=== PATIENT | female | born 1965 | race Caucasian/White ===

== ENCOUNTER 2019-11-12 14:24 | Emergency (ER) | payer MEDICAID, SELFPAY ==
[2019-11-12] VITALS (11 sets, daily range): BP systolic 113–142; BP diastolic 54–76; PULSE 72–91; RESP 18–22; TEMP 37.2; O2SAT 87–94; BMI 33.3
--- NOTE | 2019-11-12 14:32 | ECG_ITS ---
[facility] Test Date: 2019-11-12 Pat Name: Kaila Greenberg Department: Room: Gender: Female Capacity Planning Manager: : 1965 Requested By: Anna Carmen Order Number: [id number] Calderon MD: Sania Leija M.D. Measurements Intervals Roland Rate: 79 P: 55 ME: 162 QRS: -5 QRSD: 157 T: 58 QT: 402 QTc: 462 Interpretive Statements SINUS RHYTHM LEFT BUNDLE BRANCH BLOCK [120+ ms QRS DURATION, 80+ ms Q/S IN V1/V2, 85+ ms R IN I/aVL/V5/V6] No previous ECG available for comparison Electronically Signed On 11-12-2019 20:39:06 CDT by Sania Leija M.D. [id number]
--- NOTE | 2019-11-12 14:32 | XR_ITS ---
WS: [id number] Portable AP upright chest, 11/12/2019 Clinical Data: cp Comparison: None. Findings: No nodules, masses or effusions are seen. The heart is normal. The pulmonary vascularity is not increased. No pneumonia or pneumothorax is seen. XR/XR chest 1V portable [id number] Impression: Negative chest.
[2019-11-12] MEDS: albuterol 8 gm MDI 2 PUFF INHALATION (15:01)
[2019-11-12 15:19] LABS: ABG PCO2 45.5 mmHg (35-45); ABG PH Result 7.46 (7.35-7.45); Arterial Blood Gas Hematocrit 36.1 % (37-47); Base Excess ABG 7.3 mmol/L (-2.0-2.0); Blood Gas Allen Test Pos; Blood Gas Sample Type Arterial; Carboxyhemoglobin 1.8 %THgb (0.4-20.1); HCO3 ABG 32.1 mmol/L (22-26); HGB O2 Sat 89.5 % (95-100); Ionized Calcium Level - ABG 1.1 mmol/L (1.1-1.4); Methemoglobin 0.8 % (0.4-1.5); Oxygen Saturation ABG 91.8; PO2 ABG 59.3 mmHg (80.0-100.0); Potassium Level - ABG 3.1 mmol/L (3.5-5.0); Total Hemoglobin 11.8 g/dL (12-16)
[2019-11-12 15:20] LABS: Alveolar-Arterial Oxygen Gradi 14.9 mmHg (5-10); Blood Gas Operator Identificat ED; Blood Gas Sample Site Radial, right; Oxygen Device NC
--- NOTE | 2019-11-12 15:34 | ED_ITS ---
Documented by User: Sheridan Camacho 11/12/19 15:43 HPI - SOB/Dyspnea General: Chief Complaint: Shortness of Breath/Dyspnea Stated Complaint: cough worsening/chest pain Time Seen by Provider: 11/12/19 14:40 Source: patient Mode of arrival: ambulatory Limitations: no limitations History of Present Illness: MD elicited complaint: shortness of breath, cough, pain with inspiration and chest pain Pertinent past history: COPD Onset (ago): day(s) (3) Timing: progressively worsening Severity: moderate Exacerbating factors: exertion and coughing Relieving factors: nothing Known history of: COPD Associated symptoms: Reports chest congestion, chest pain, cough, extremity pain (generalized malaise) and fever(s); Deny abdominal pain, diaphoresis, dizziness, lightheadedness, nausea, syncope or vomiting Treatment prior to arrival: none Related Data: Home oxygen amount: none Review of Systems General: Reports: 10 or more systems reviewed and unremarkable except in HPI and below Const: Reports: fever(s), chills, body aches, fatigue and malaise; Denies: change in appetite, change in weight or diaphoresis Eyes: Denies: change in vision or blurry vision ENMT: Denies: throat pain, odynophagia or dental pain Card: Reports: chest pain; Denies: lightheadedness or syncope Resp: Reports: dyspnea, non-productive cough, wheezing, pain on inspiration and chest congestion GI: Reports: diarrhea; Denies: abdominal pain, nausea or vomiting : Denies: flank pain, difficulty voiding, dysuria or urinary frequency Musc: Reports: extremity pain (generalized malaise); Denies: neck pain or back pain Neuro: Denies: headache(s), numbness in extremities, weakness in extremities, sensory changes, lack of coordination, difficulty walking, dizziness, vertigo, confusion, behavioral changes or Slurred speech present Psych: Denies: suicidal ideation or homicidal ideation Physical Exam Const: COMMON NORMALS: no acute distress, average body habitus, patient oriented x3, no limitations, healthy appearing, alert and well nourished HENMT: COMMON NORMALS: normocephalic, atraumatic, hearing grossly normal bilaterally, external ears normal, EAC's normal, TM's normal bilaterally, Normal external nose present, Normal nasal mucous membranes and turbinates present, moist oral mucous membranes, oropharynx normal, dentition normal and gingiva normal HEAD & SCALP: normocephalic and atraumatic NOSE: Normal external nose present and Normal nasal mucous membranes and turbinates present EXTERNAL EAR: Yes external ears normal EXTERNAL AUDITORY CANAL: EAC's normal TYMPANIC MEMBRANE: TM's normal bilaterally Eye: COMMON NORMALS: Equal, round and reactive pupils present, EOMs intact bilaterally, conjunctivae normal, no scleral icterus, no papilledema, normal visual parker by confrontation and fundi normal bilaterally CONJUNCTIVA: Yes conjunctivae normal PUPIL: Yes Equal, round and reactive pupils present DIRECT OPHTHALMOSCOPY: Yes no papilledema and Yes fundi normal bilaterally Neck/C-Spine: COMMON NORMALS: full ROM, no lymphadenopathy, supple, no meningeal signs, no JVD, Thyroid normal and No carotid bruits THYROID: Thyroid normal Lymph: LYMPHATIC: no lymphadenopathy noted Chest: COMMONS NORMALS: normal inspection of the chest, normal palpation of entire chest wall, normal inspection of the breasts and normal palpation of the breasts Resp: COMMON NORMALS: No retractions and No use of accessory muscles; negative for normal respiratory effort EFFORT & INSPECTION: Yes tachypneic and Yes Actively coughing AUSCULTATION: wheezes Cardio: COMMON NORMALS: no JVD, regular rate, regular rhythm, No gallops present (Cardio), No clicks present (Cardio), No murmurs present (Cardio) and No rub (Cardio) RATE: regular rate RHYTHM: regular rhythm GI: COMMON NORMALS: Normal to inspection, nondistended, normoactive bowel sounds present, Soft to palpation, non-tender, No hepatosplenomegaly present, no masses and no bruits PALPATION: Yes Soft to palpation and Yes No hepatosplenomegaly present : COMMON NORMALS: Yes no CVA tenderness BLADDER/KIDNEY EXAM: Yes no CVA tenderness Back/Pelvis: COMMON NORMALS: no CVA tenderness, thoracic and lumbar spine normal to inspection, no thoracic nor lumbar tenderness, thoraco-lumbar ROM normal and straight leg raise negative bilaterally Extremity: COMMON NORMALS: normal to inspection, full ROM, capillary refill normal, no joint enlargement, no clubbing, cyanosis or edema, no calf tenderness and no pedal edema Neuro: COMMON NORMALS: patient oriented x3, CN's II-XII intact bilaterally, moves all extremities, no focal motor deficits, no sensory deficits noted, deep tendon reflexes 2+ bilaterally and gait normal SENSORIUM/ORIENTATION: Yes alert MENINGEAL SIGNS: Yes no meningeal signs Psych: COMMON NORMALS: mental status grossly normal, Normal thought process present, cooperative, normal affect, speech normal, activity/motor behavior normal, denies hallucinations, denies homicidal ideation and denies suicidal ideation SPEECH: Yes normal speech THOUGHT PROCESS: Normal thought process present Skin: COMMON NORMALS: no rashes or lesions noted, no wounds, turgor normal, no jaundice, no petechiae and no mottling GENERAL SKIN EXAM: no rashes or lesions noted and turgor normal Course ED course: . Vital Signs: Vital signs: Vital Signs Temperature 99 F 11/12/19 14:34 Pulse Rate 89 11/12/19 22:16 Respiratory Rate 19 H 11/12/19 20:36 Blood Pressure 142/54 11/12/19 22:16 Pulse Oximetry 92 11/12/19 22:16 MDM - SOB/Dyspnea Lab Data: Labs: Lab Results 11/12/19 11/12/19 11/12/19 Range/Units 15:11 15:40 15:40 WBC 11.4 H (4.0-10.0) 10^3/ uL RBC 3.79 L (4.1-5.3) 10^6/u L Hgb 11.9 (11.5-15.3) g/dL Hct 37.3 (37.0-47.0) % MCV 98.4 (81-99) fL MCH 31.4 (28.0-34.0) pg MCHC 31.9 (30.0-36.0) g/dL RDW 13.3 (12.1-15.1) % Plt Count 310 (130-400) 10^3/c mm MPV 11.1 H (7.4-10.4) fL Neut % (Auto) 72.9 % Lymph % (Auto) 16.7 % Mcdonough % (Auto) 8.1 % Eos % (Auto) 1.5 % Baso % (Auto) 0.4 % Neut # (Auto) 8.28 H (1.8-7.7) 10^3/u L Lymph # (Auto) 1.9 (0.8-4.8) 10^3/u L Mcdonough # (Auto) 0.9 (0.2-0.9) 10^3/u L Eos # (Auto) 0.2 (0.0-0.8) 10^3/u L Baso # (Auto) 0.1 (0.0-0.1) 10^3/u L Nucleated RBC % (a uto) 0 % Nucleated RBCs # 0.0 /100WBC D-Dimer 2.28 H (0-0.59) ug/mIFE U Specimen Type Arterial Sample Site Radial, right ABG pH 7.46 H (7.35-7.45) ABG pCO2 45.5 H (35-45) mmHg ABG pO2 59.3 L (80.0-100.0) mmH g ABG HCO3 32.1 H (22-26) mmol/L ABG O2 Saturation 91.8 ABG Base Excess 7.3 H (-2.0-2.0) mmol/ L Dalton Test Pos A-a O2 Gradient 14.9 H (5-10) mmHg Hematocrit 36.1 L (37-47) % Hgb O2 Saturation 89.5 L (95-100) % Carboxyhemoglobin 1.8 (0.4-20.1) %THgb Methemoglobin 0.8 (0.4-1.5) % Total Hemoglobin 11.8 L (12-16) g/dL Sodium 141.0 (131-143) mmol/L Potassium 3.1 L (3.5-5.0) mmol/L Glucose 124.0 H (70-115) mg/dL Ionized Calcium 1.1 (1.1-1.4) mmol/L O2 Delivery Device Nc O2 Liters/Min 3.0 % FiO2 32.0 % Sow [employer] Manager ID Ed Chloride (98-107) mmol/L Carbon Dioxide (22-29) mmol/L Anion Gap (5-19) BUN (6-20) mg/dL Creatinine (0.5-0.9) mg/dL GFR Calculation (90-130) mL/min Calculated Osmolal ity (285-295) mOsm/k g Lactate (0.5-2.2) mmol/L Calcium (8.5-10.5) mg/dL Total Bilirubin (0.15-1.2) mg/dL AST (0-32) U/L ALT (0-33) U/L Alkaline Phosphata se (35-105) IU/L Troponin T Gen 5 n g/L (0-10) ng/L Total Protein (6.6-8.7) g/dL Albumin (3.5-5.2) g/dL Globulin (1.3-4.6) g/dL SARS-CoV-2 Ag (Rap id) (Negative) 11/12/19 11/12/19 11/12/19 Range/Units 15:40 15:40 15:40 WBC (4.0-10.0) 10^3/ uL RBC (4.1-5.3) 10^6/u L Hgb (11.5-15.3) g/dL Hct (37.0-47.0) % MCV (81-99) fL MCH (28.0-34.0) pg MCHC (30.0-36.0) g/dL RDW (12.1-15.1) % Plt Count (130-400) 10^3/c mm MPV (7.4-10.4) fL Neut % (Auto) % Lymph % (Auto) % Mcdonough % (Auto) % Eos % (Auto) % Baso % (Auto) % Neut # (Auto) (1.8-7.7) 10^3/u L Lymph # (Auto) (0.8-4.8) 10^3/u L Mcdonough # (Auto) (0.2-0.9) 10^3/u L Eos # (Auto) (0.0-0.8) 10^3/u L Baso # (Auto) (0.0-0.1) 10^3/u L Nucleated RBC % (a uto) % Nucleated RBCs # /100WBC D-Dimer (0-0.59) ug/mIFE U Specimen Type Sample Site ABG pH (7.35-7.45) ABG pCO2 (35-45) mmHg ABG pO2 (80.0-100.0) mmH g ABG HCO3 (22-26) mmol/L ABG O2 Saturation ABG Base Excess (-2.0-2.0) mmol/ L Dalton Test A-a O2 Gradient (5-10) mmHg Hematocrit (37-47) % Hgb O2 Saturation (95-100) % Carboxyhemoglobin (0.4-20.1) %THgb Methemoglobin (0.4-1.5) % Total Hemoglobin (12-16) g/dL Sodium 136 (131-143) mmol/L Potassium 3.1 L (3.5-5.0) mmol/L Glucose 127 H (70-115) mg/dL Ionized Calcium (1.1-1.4) mmol/L O2 Delivery Device O2 Liters/Min % FiO2 % [employer] Manager ID Chloride 94 L (98-107) mmol/L Carbon Dioxide 31 H (22-29) mmol/L Anion Gap 14.1 (5-19) BUN 4 L (6-20) mg/dL Creatinine 0.5 (0.5-0.9) mg/dL GFR Calculation 128.1 (90-130) mL/min Calculated Osmolal ity 280 L (285-295) mOsm/k g Lactate 0.9 (0.5-2.2) mmol/L Calcium 9.5 (8.5-10.5) mg/dL Total Bilirubin 0.6 (0.15-1.2) mg/dL AST 15 (0-32) U/L ALT 38 H (0-33) U/L Alkaline Phosphata se 100 (35-105) IU/L Troponin T Gen 5 n g/L 26 H (0-10) ng/L Total Protein 7.5 (6.6-8.7) g/dL Albumin 4.1 (3.5-5.2) g/dL Globulin 3.4 (1.3-4.6) g/dL SARS-CoV-2 Ag (Rap id) (Negative) 11/12/19 Range/Units 15:45 WBC (4.0-10.0) 10^3/ uL RBC (4.1-5.3) 10^6/u L Hgb (11.5-15.3) g/dL Hct (37.0-47.0) % MCV (81-99) fL MCH (28.0-34.0) pg MCHC (30.0-36.0) g/dL RDW (12.1-15.1) % Plt Count (130-400) 10^3/c mm MPV (7.4-10.4) fL Neut % (Auto) % Lymph % (Auto) % Mcdonough % (Auto) % Eos % (Auto) % Baso % (Auto) % Neut # (Auto) (1.8-7.7) 10^3/u L Lymph # (Auto) (0.8-4.8) 10^3/u L Mcdonough # (Auto) (0.2-0.9) 10^3/u L Eos # (Auto) (0.0-0.8) 10^3/u L Baso # (Auto) (0.0-0.1) 10^3/u L Nucleated RBC % (a uto) % Nucleated RBCs # /100WBC D-Dimer (0-0.59) ug/mIFE U Specimen Type Sample Site ABG pH (7.35-7.45) ABG pCO2 (35-45) mmHg ABG pO2 (80.0-100.0) mmH g ABG HCO3 (22-26) mmol/L ABG O2 Saturation ABG Base Excess (-2.0-2.0) mmol/ L Dalton Test A-a O2 Gradient (5-10) mmHg Hematocrit (37-47) % Hgb O2 Saturation (95-100) % Carboxyhemoglobin (0.4-20.1) %THgb Methemoglobin (0.4-1.5) % Total Hemoglobin (12-16) g/dL Sodium (131-143) mmol/L Potassium (3.5-5.0) mmol/L Glucose (70-115) mg/dL Ionized Calcium (1.1-1.4) mmol/L O2 Delivery Device O2 Liters/Min % FiO2 % Sow [employer] Manager ID Chloride (98-107) mmol/L Carbon Dioxide (22-29) mmol/L Anion Gap (5-19) BUN (6-20) mg/dL Creatinine (0.5-0.9) mg/dL GFR Calculation (90-130) mL/min Calculated Osmolal ity (285-295) mOsm/k g Lactate (0.5-2.2) mmol/L Calcium (8.5-10.5) mg/dL Total Bilirubin (0.15-1.2) mg/dL AST (0-32) U/L ALT (0-33) U/L Alkaline Phosphata se (35-105) IU/L Troponin T Gen 5 n g/L (0-10) ng/L Total Protein (6.6-8.7) g/dL Albumin (3.5-5.2) g/dL Globulin (1.3-4.6) g/dL SARS-CoV-2 Ag (Rap id) Negative (Negative) Discharge Plan Discharge Patient Disposition: Home Clinical Impression: Acute exacerbation of chronic obstructive airways disease Condition: Stable Prescriptions: New azithromycin 250 mg tablet 250 mg PO DAILY 4 Days Qty: 4 RF: 0 prednisone 20 mg tablet 20 mg PO TID 5 Days Qty: 15 RF: 0 Tessalon Perles 100 mg capsule 100 mg PO BID PRN (Reason: cough) Qty: 20 RF: 0 albuterol sulfate 1.25 mg/3 mL solution for nebulization 1.25 mg INHALATION Q8H PRN (Reason: shortness of breath or wheezing) Qty: 75 RF: 0 No Action albuterol sulfate 2.5 mg /3 mL (0.083 %) solution for nebulization See Rx Instructions .ROUTE .COMPLEX RF: 0 sertraline 100 mg tablet 100 mg PO BID RF: 0 meloxicam 7.5 mg tablet 7.5 mg PO DAILY RF: 0 trazodone 100 mg tablet 100 mg PO BID RF: 0 buspirone 30 mg tablet 30 mg PO BID RF: 0 ProAir HFA 90 mcg/actuation HFA aerosol inhaler See Rx Instructions .ROUTE .COMPLEX RF: 0 Spiriva with HandiHaler 18 mcg capsule, w/inhalation device See Rx Instructions .ROUTE .COMPLEX RF: 0 Chantix Starting Month Box 0.5 mg (11)- 1 mg (42) tablets,dose pack See Rx Instructions .ROUTE .COMPLEX RF: 0 Discharge Orders: Discharge Order (Routine); Ordered 11/12/19 Ordered By: Nagi Pastor Discharge Diet: Regular Discharge Activity: Increase activity as tolerated Patient Instructions: Bronchitis (Acute) - Adult, Using Oxygen at Home (ED), Chronic Obstructive Pulmonary Disease (ED) Activity Restrictions/Additional Instructions: Follow-up with medical provider as directed. Take medications as prescribed. Return to the ER or your medical provider if condition worsens. Please read and understand discharge instructions. If any questions, please ask. Discharge Date/Time: 11/12/19 23:24 Sign Out Sign Out Data: Patient Sign Out occurred on 11/12/19 at 17:18. Patient's care was discussed, and care was transferred from to HUBERT Chaudhary. Coding Level of Care Code ED Mems Engineer for Chg Fwd Exam Comprehensive Documented by User: HUBERT Chaudhary 11/13/19 01:52 HPI - SOB/Dyspnea General: Chief Complaint: Shortness of Breath/Dyspnea Stated Complaint: cough worsening/chest pain Time Seen by Provider: 11/12/19 14:40 Course Reevaluation(s): Reevaluation #1: I wanted to talk to patient about CTA chest pain negative for PE. I also talked patient about her history and she says she does have some inhalers and has a history of COPD. She is not on any oxygen at home. When her O2 nasal cannula was removed in the room her oxygen saturation dipped down into the low 80s. I am ordering an home O2 evaluation for patient. Time: 18:38 Consultations: Consultation #1: I spoke with respiratory therapist after home O2 eval and she stated that patient needs to be on 2 L of oxygen at home when at rest and approximately 5 L of oxygen on exertion via nasal cannula. Time: 20:37 Vital Signs: Vital signs: Vital Signs Temperature 99 F 11/12/19 14:34 Pulse Rate 89 11/12/19 22:16 Respiratory Rate 19 H 11/12/19 20:36 Blood Pressure 142/54 11/12/19 22:16 Pulse Oximetry 92 11/12/19 22:16 MDM - SOB/Dyspnea MDM Narrative: Medical decision making narrative: Sheridan Stewart performed the history, physical exam and work-up of patient. I took over patient care around 5 PM and Sheridan told me that patient's d-dimer was elevated at 2.[address] of the chest was ordered. COVID antigen test was negative. Sheridan told me that pending CTA chest results patient can be discharged. Patient is a 54-year-old female comes to the ED with shortness of breath. Patient has a past medical history of COPD. Patient is not on any oxygen at home. White blood cell 11.4, hemoglobin 11.9. Potassium 3.1 and rest of CMP was unremarkable. CTA of chest showed no PE but did show some mild bronchitis. Patient was given DuoNeb breathing treatment and put on 3 L of O2 nasal cannula and her symptoms improved. Patient was also given 40 mEq of oral potassium while here in the ED. RT performed home O2 eval and she stated that patient needs to be on 2 L of oxygen at home when at rest and approximately 5 L of oxygen on exertion via nasal cannula. Patient was given a prescription for oxygen. She was also sent home with prescription for azithromycin, Tessalon Perles, prednisone and refill for albuterol nebs. Follow-up with PCP in 7 to 10 days. Return to ED precautions given. Patient ended up leaving ED AMA without oxygen. Lab Data: Attestation: I reviewed the patient's lab results. Labs: Lab Results 11/12/19 11/12/19 11/12/19 Range/Units 15:11 15:40 15:40 WBC 11.4 H (4.0-10.0) 10^3/ uL RBC 3.79 L (4.1-5.3) 10^6/u L Hgb 11.9 (11.5-15.3) g/dL Hct 37.3 (37.0-47.0) % MCV 98.4 (81-99) fL MCH 31.4 (28.0-34.0) pg MCHC 31.9 (30.0-36.0) g/dL RDW 13.3 (12.1-15.1) % Plt Count 310 (130-400) 10^3/c mm MPV 11.1 H (7.4-10.4) fL Neut % (Auto) 72.9 % Lymph % (Auto) 16.7 % Mcdonough % (Auto) 8.1 % Eos % (Auto) 1.5 % Baso % (Auto) 0.4 % Neut # (Auto) 8.28 H (1.8-7.7) 10^3/u L Lymph # (Auto) 1.9 (0.8-4.8) 10^3/u L Mcdonough # (Auto) 0.9 (0.2-0.9) 10^3/u L Eos # (Auto) 0.2 (0.0-0.8) 10^3/u L Baso # (Auto) 0.1 (0.0-0.1) 10^3/u L Nucleated RBC % (a uto) 0 % Nucleated RBCs # 0.0 /100WBC D-Dimer 2.28 H (0-0.59) ug/mIFE U Specimen Type Arterial Sample Site Radial, right ABG pH 7.46 H (7.35-7.45) ABG pCO2 45.5 H (35-45) mmHg ABG pO2 59.3 L (80.0-100.0) mmH g ABG HCO3 32.1 H (22-26) mmol/L ABG O2 Saturation 91.8 ABG Base Excess 7.3 H (-2.0-2.0) mmol/ L Dalton Test Pos A-a O2 Gradient 14.9 H (5-10) mmHg Hematocrit 36.1 L (37-47) % Hgb O2 Saturation 89.5 L (95-100) % Carboxyhemoglobin 1.8 (0.4-20.1) %THgb Methemoglobin 0.8 (0.4-1.5) % Total Hemoglobin 11.8 L (12-16) g/dL Sodium 141.0 (131-143) mmol/L Potassium 3.1 L (3.5-5.0) mmol/L Glucose 124.0 H (70-115) mg/dL Ionized Calcium 1.1 (1.1-1.4) mmol/L O2 Delivery Device Nc O2 Liters/Min 3.0 % FiO2 32.0 % Sow [employer] Manager ID Ed Chloride (98-107) mmol/L Carbon Dioxide (22-29) mmol/L Anion Gap (5-19) BUN (6-20) mg/dL Creatinine (0.5-0.9) mg/dL GFR Calculation (90-130) mL/min Calculated Osmolal ity (285-295) mOsm/k g Lactate (0.5-2.2) mmol/L Calcium (8.5-10.5) mg/dL Total Bilirubin (0.15-1.2) mg/dL AST (0-32) U/L ALT (0-33) U/L Alkaline Phosphata se (35-105) IU/L Troponin T Gen 5 n g/L (0-10) ng/L Total Protein (6.6-8.7) g/dL Albumin (3.5-5.2) g/dL Globulin (1.3-4.6) g/dL SARS-CoV-2 Ag (Rap id) (Negative) 11/12/19 11/12/19 11/12/19 Range/Units 15:40 15:40 15:40 WBC (4.0-10.0) 10^3/ uL RBC (4.1-5.3) 10^6/u L Hgb (11.5-15.3) g/dL Hct (37.0-47.0) % MCV (81-99) fL MCH (28.0-34.0) pg MCHC (30.0-36.0) g/dL RDW (12.1-15.1) % Plt Count (130-400) 10^3/c mm MPV (7.4-10.4) fL Neut % (Auto) % Lymph % (Auto) % Mcdonough % (Auto) % Eos % (Auto) % Baso % (Auto) % Neut # (Auto) (1.8-7.7) 10^3/u L Lymph # (Auto) (0.8-4.8) 10^3/u L Mcdonough # (Auto) (0.2-0.9) 10^3/u L Eos # (Auto) (0.0-0.8) 10^3/u L Baso # (Auto) (0.0-0.1) 10^3/u L Nucleated RBC % (a uto) % Nucleated RBCs # /100WBC D-Dimer (0-0.59) ug/mIFE U Specimen Type Sample Site ABG pH (7.35-7.45) ABG pCO2 (35-45) mmHg ABG pO2 (80.0-100.0) mmH g ABG HCO3 (22-26) mmol/L ABG O2 Saturation ABG Base Excess (-2.0-2.0) mmol/ L Dalton Test A-a O2 Gradient (5-10) mmHg Hematocrit (37-47) % Hgb O2 Saturation (95-100) % Carboxyhemoglobin (0.4-20.1) %THgb Methemoglobin (0.4-1.5) % Total Hemoglobin (12-16) g/dL Sodium 136 (131-143) mmol/L Potassium 3.1 L (3.5-5.0) mmol/L Glucose 127 H (70-115) mg/dL Ionized Calcium (1.1-1.4) mmol/L O2 Delivery Device O2 Liters/Min % FiO2 % Sow [employer] Manager ID Chloride 94 L (98-107) mmol/L Carbon Dioxide 31 H (22-29) mmol/L Anion Gap 14.1 (5-19) BUN 4 L (6-20) mg/dL Creatinine 0.5 (0.5-0.9) mg/dL GFR Calculation 128.1 (90-130) mL/min Calculated Osmolal ity 280 L (285-295) mOsm/k g Lactate 0.9 (0.5-2.2) mmol/L Calcium 9.5 (8.5-10.5) mg/dL Total Bilirubin 0.6 (0.15-1.2) mg/dL AST 15 (0-32) U/L ALT 38 H (0-33) U/L Alkaline Phosphata se 100 (35-105) IU/L Troponin T Gen 5 n g/L 26 H (0-10) ng/L Total Protein 7.5 (6.6-8.7) g/dL Albumin 4.1 (3.5-5.2) g/dL Globulin 3.4 (1.3-4.6) g/dL SARS-CoV-2 Ag (Rap id) (Negative) 11/12/19 Range/Units 15:45 WBC (4.0-10.0) 10^3/ uL RBC (4.1-5.3) 10^6/u L Hgb (11.5-15.3) g/dL Hct (37.0-47.0) % MCV (81-99) fL MCH (28.0-34.0) pg MCHC (30.0-36.0) g/dL RDW (12.1-15.1) % Plt Count (130-400) 10^3/c mm MPV (7.4-10.4) fL Neut % (Auto) % Lymph % (Auto) % Mcdonough % (Auto) % Eos % (Auto) % Baso % (Auto) % Neut # (Auto) (1.8-7.7) 10^3/u L Lymph # (Auto) (0.8-4.8) 10^3/u L Mcdonough # (Auto) (0.2-0.9) 10^3/u L Eos # (Auto) (0.0-0.8) 10^3/u L Baso # (Auto) (0.0-0.1) 10^3/u L Nucleated RBC % (a uto) % Nucleated RBCs # /100WBC D-Dimer (0-0.59) ug/mIFE U Specimen Type Sample Site ABG pH (7.35-7.45) ABG pCO2 (35-45) mmHg ABG pO2 (80.0-100.0) mmH g ABG HCO3 (22-26) mmol/L ABG O2 Saturation ABG Base Excess (-2.0-2.0) mmol/ L Dalton Test A-a O2 Gradient (5-10) mmHg Hematocrit (37-47) % Hgb O2 Saturation (95-100) % Carboxyhemoglobin (0.4-20.1) %THgb Methemoglobin (0.4-1.5) % Total Hemoglobin (12-16) g/dL Sodium (131-143) mmol/L Potassium (3.5-5.0) mmol/L Glucose (70-115) mg/dL Ionized Calcium (1.1-1.4) mmol/L O2 Delivery Device O2 Liters/Min % FiO2 % Sow [employer] Manager ID Chloride (98-107) mmol/L Carbon Dioxide (22-29) mmol/L Anion Gap (5-19) BUN (6-20) mg/dL Creatinine (0.5-0.9) mg/dL GFR Calculation (90-130) mL/min Calculated Osmolal ity (285-295) mOsm/k g Lactate (0.5-2.2) mmol/L Calcium (8.5-10.5) mg/dL Total Bilirubin (0.15-1.2) mg/dL AST (0-32) U/L ALT (0-33) U/L Alkaline Phosphata se (35-105) IU/L Troponin T Gen 5 n g/L (0-10) ng/L Total Protein (6.6-8.7) g/dL Albumin (3.5-5.2) g/dL Globulin (1.3-4.6) g/dL SARS-CoV-2 Ag (Rap id) Negative (Negative) Imaging Data^: CT Chest: Attestation: I personally reviewed and interpreted this imaging study as follows: Radiologist's impression: [address] [place] [address] CT Scan Report Signed Patient: Kaila Greenberg Unit #: [id number] : 1965 Ac ct#:[id number] Age/Sex: 54 / F ADM Date: 11/12/19 Loc: ER Room/Bed: Attending Dr: Ordering Provider/Ordering MD: Sheridan Camacho NP Date of Service: 11/12/19 Procedure(s): CT angio chest PE protcl [id number] Accession Number(s): [id number] Report Number: [id number] PROCEDURE INFORMATION: Exam: CT Angiography Chest With Contrast Exam date and time: 11/12/2019 5:30 PM Age: 54 years old Clinical indication: Cough and shortness of breath; Patient HX: Cough, SOB, elev d-dimer; Additional info: Elevated d nirali SOB TECHNIQUE: Imaging protocol: Computed tomographic angiography of the chest with intravenous contrast. 3D rendering (Not supervised by radiologist): MIP and/or 3D reconstructed images were created by the technologist. Radiation optimization: All CT scans at this facility use at least one of these dose optimization techniques: automated exposure control; mA and/or kV adjustment per patient size (includes targeted exams where dose is matched to clinical indication); or iterative reconstruction. Contrast material: OMNI 350; Contrast volume: 95 ml; Contrast route: INTRAVENOUS (IV); COMPARISON: CR XR chest 1V portable [id number] 11/12/2019 2:56 PM RADIATION DOSE METRICS: Total DLP (mGy-cm): 518.99 FINDINGS: Pulmonary arteries: There is no evidence of filling defects within the pulmonary arterial circulation to suggest pulmonary embolism. Aorta: Unremarkable. No aortic aneurysm. No aortic dissection. Lungs: There is some minimal peribronchial infiltrate in the right middle lobe such as an image number 28 and in the right upper lobe such as an image number 18 which may represent some mild infectious bronchitis. There is some mild platelike atelectasis in the anterior right middle lobe. No focal consolidation is identified. Pleural space: Unremarkable. No pneumothorax. No pleural effusion. Heart: Unremarkable. No cardiomegaly. No pericardial effusion. Lymph nodes: There is mild right hilar adenopathy. Bones/joints: Unremarkable. No acute fracture. Soft tissues: Unremarkable. CT/CT angio chest PE protcl [id number] IMPRESSION: 1. No evidence of pulmonary embolism. 2. Minimal peribronchial infiltrates on the right which may represent some mild bronchitis. Clinical correlation follow-up suggested. 3. Minimal right hilar adenopathy. Radiation Dose CTDIVOL = (mGy): DLP = 518.99 (mGy-cm) Dictated By: Sedrick Carrera Signed By: Sedrick Carrera Signed Date/Time: 11/12/191815 DD/ 14 Discharge Plan Discharge Patient Disposition: Home Clinical Impression: Acute exacerbation of chronic obstructive airways disease Condition: Stable Prescriptions: New azithromycin 250 mg tablet 250 mg PO DAILY 4 Days Qty: 4 RF: 0 prednisone 20 mg tablet 20 mg PO TID 5 Days Qty: 15 RF: 0 Tessalon Perles 100 mg capsule 100 mg PO BID PRN (Reason: cough) Qty: 20 RF: 0 albuterol sulfate 1.25 mg/3 mL solution for nebulization 1.25 mg INHALATION Q8H PRN (Reason: shortness of breath or wheezing) Qty: 75 RF: 0 No Action albuterol sulfate 2.5 mg /3 mL (0.083 %) solution for nebulization See Rx Instructions .ROUTE .COMPLEX RF: 0 sertraline 100 mg tablet 100 mg PO BID RF: 0 meloxicam 7.5 mg tablet 7.5 mg PO DAILY RF: 0 trazodone 100 mg tablet 100 mg PO BID RF: 0 buspirone 30 mg tablet 30 mg PO BID RF: 0 ProAir HFA 90 mcg/actuation HFA aerosol inhaler See Rx Instructions .ROUTE .COMPLEX RF: 0 Spiriva with HandiHaler 18 mcg capsule, w/inhalation device See Rx Instructions .ROUTE .COMPLEX RF: 0 Chantix Starting Month Box 0.5 mg (11)- 1 mg (42) tablets,dose pack See Rx Instructions .ROUTE .COMPLEX RF: 0 Discharge Orders: Discharge Order (Routine); Ordered 11/12/19 Ordered By: Nagi Pastor Discharge Diet: Regular Discharge Activity: Increase activity as tolerated Patient Instructions: Bronchitis (Acute) - Adult, Using Oxygen at Home (ED), Chronic Obstructive Pulmonary Disease (ED) Activity Restrictions/Additional Instructions: Follow-up with medical provider as directed. Take medications as prescribed. Return to the ER or your medical provider if condition worsens. Please read and understand discharge instructions. If any questions, please ask. Discharge Date/Time: 11/12/19 23:24 Sign Out Sign Out Data: Patient Sign Out occurred on 11/12/19 at 17:18. Patient's care was discussed, and care was transferred from to HUBERT Chaudhary. Coding Level of Care Code ED Mems Engineer for Leanng Fwd Exam Comprehensive
[2019-11-12] MEDS: dexamethasone 4 mg/mL INJ 6 MG IVP (15:40)
[2019-11-12 15:54] LABS: Basophils # 0.1 10^3/uL (0.0-0.1); Basophils % 0.4 %; Eosinophils # 0.2 10^3/uL (0.0-0.8); Eosinophils % 1.5 %; Hematocrit 37.3 % (37.0-47.0); Hemoglobin 11.9 g/dL (11.5-15.3); Lymphocytes # 1.9 10^3/uL (0.8-4.8); Lymphocytes % 16.7 %; Mean Corpuscular HGB Conc 31.9 g/dL (30.0-36.0); Mean Corpuscular Hemoglobin 31.4 pg (28.0-34.0); Mean Corpuscular Volume 98.4 fL (81-99); Mean Platelet Volume 11.1 fL (7.4-10.4); Monocytes # 0.9 10^3/uL (0.2-0.9); Monocytes % 8.1 %; Neutrophils # 8.28 10^3/uL (1.8-7.7); Neutrophils % 72.9 %; Nucleated Red Blood Cells % 0 %; Platelet Count 310 10^3/cmm (130-400); Red Blood Count 3.79 10^6/uL (4.1-5.3); Red Cell Distribution Width 13.3 % (12.1-15.1); White Blood Count 11.4 10^3/uL (4.0-10.0)
[2019-11-12 16:07] LABS: D Dimer 2.28 ug/mIFEU (0-0.59)
[2019-11-12 16:11] LABS: Alanine Aminotransferase 38 U/L (0-33); Albumin Level 4.1 g/dL (3.5-5.2); Alkaline Phosphatase 100 IU/L (35-105); Anion Gap 14.1 (5-19); Aspartate Amino Transferase 15 U/L (0-32); Blood Urea Nitrogen 4 mg/dL (6-20); Calcium 9.5 mg/dL (8.5-10.5); Carbon Dioxide 31 mmol/L (22-29); Chloride 94 mmol/L (98-107); Creatinine Clr Calc Pharmacy 150.2057; Globulin 3.4 g/dL (1.3-4.6); Glomerular Filtration Rate 128.1 mL/min (90-130); Glucose 127 mg/dL (65-115); Osmolality Calculated 280 mOsm/kg (285-295); Potassium 3.1 mmol/L (3.5-5.1); Sodium 136 mmol/L (136-145); Total Bilirubin 0.6 mg/dL (0.15-1.2); Total Protein 7.5 g/dL (6.6-8.7)
[2019-11-12 16:12] LABS: Lactate (Lactic Acid level) 0.9 mmol/L (0.5-2.2)
[2019-11-12 16:12] LABS: SARS Covid-2 Antigen Negative (Negative)
--- NOTE | 2019-11-12 16:18 | CTR_ITS ---
PROCEDURE INFORMATION: Exam: CT Angiography Chest With Contrast Exam date and time: 11/12/2019 5:30 PM Age: 54 years old Clinical indication: Cough and shortness of breath; Patient HX: Cough, SOB, elev d-dimer; Additional info: Elevated d nirali SOB TECHNIQUE: Imaging protocol: Computed tomographic angiography of the chest with intravenous contrast. 3D rendering (Not supervised by radiologist): MIP and/or 3D reconstructed images were created by the technologist. Radiation optimization: All CT scans at this facility use at least one of these dose optimization techniques: automated exposure control; mA and/or kV adjustment per patient size (includes targeted exams where dose is matched to clinical indication); or iterative reconstruction. Contrast material: OMNI 350; Contrast volume: 95 ml; Contrast route: INTRAVENOUS (IV); COMPARISON: CR XR chest 1V portable [id number] 11/12/2019 2:56 PM RADIATION DOSE METRICS: Total DLP (mGy-cm): 518.99 FINDINGS: Pulmonary arteries: There is no evidence of filling defects within the pulmonary arterial circulation to suggest pulmonary embolism. Aorta: Unremarkable. No aortic aneurysm. No aortic dissection. Lungs: There is some minimal peribronchial infiltrate in the right middle lobe such as an image number 28 and in the right upper lobe such as an image number 18 which may represent some mild infectious bronchitis. There is some mild platelike atelectasis in the anterior right middle lobe. No focal consolidation is identified. Pleural space: Unremarkable. No pneumothorax. No pleural effusion. Heart: Unremarkable. No cardiomegaly. No pericardial effusion. Lymph nodes: There is mild right hilar adenopathy. Bones/joints: Unremarkable. No acute fracture. Soft tissues: Unremarkable. CT/CT angio chest PE protcl [id number] IMPRESSION: 1. No evidence of pulmonary embolism. 2. Minimal peribronchial infiltrates on the right which may represent some mild bronchitis. Clinical correlation follow-up suggested. 3. Minimal right hilar adenopathy. Radiation Dose CTDIVOL = (mGy): DLP = 518.99 (mGy-cm)
[2019-11-12 16:47] LABS: Troponin T (5th) Once 26 ng/L (0-10)
[2019-11-12] MEDS: ipratropium-albuterol 3 mL Neb INHALATION (17:20)
[2019-11-12] MEDS: potassium chloride ER 10 mEq Tablet 40 MEQ PO (17:27)
[2019-11-12] MEDS: iohexol 350 mg/mL 100 mL Btl IV (17:46)
[2019-11-12] MEDS: azithromycin 250 mg Tablet 500 MG PO (19:22)
--- NOTE | 2019-11-12 23:02 | PC.NURSE ---
Patient was put on oxygen by HOME and when it was discovered that the patients insurance would not cover that service, a call to [facility] was made as they cover [facility]. Which is where the patient was from. HOME operations support representative took their equipment. This nurse was not aware of the issue with insurance and went over the physician printed discharge package with patient. IV was discontinued and the IV catheter was intact upon removal. Discharge paperwork was signed by the patient at that time. This nurse went back to the room @ 2250 to let patient know that [facility] had been contacted and we were waiting on them to deliver home oxygen supplies. Once I got to the room patient and all patient belongings were gone. This nurse went to the parking lot, waiting room, and triage room and was unable to locate patient. .
--- NOTE | 2019-11-12 23:21 | PC.NURSE ---
[facility] called back and asked for patient information verbally and to be faxed to their office. Information given and faxed. Kwadwo is attempting to contact patient now.
--- NOTE | 2019-11-13 00:26 | PC.NURSE ---
Patients sister Chelsy called, stated that patient was there with her at her house. Patient sister and patient wanted to explain reason for elopement. Patient sister gave her phone number and address so this nurse could pass it along to [facility].
--- NOTE | 2019-11-13 00:28 | PC.NURSE ---
This nurse called Kwad[facility] and gave new contact information for where patient will be staying while in [place].
== END 2019-11-12 23:24 | disposition home or self-care (01) ==
PROVIDERS: Registered Nurse; Emergency Provider Physician Assistant
DX: J44.1 Chronic obstructive pulmonary disease with (acute) exacerbation (principal)
CPT/HCPCS: 12345; 36600; 71045; 71275; 80051; 80053; 82810; 83605; 83986; 84484; 85025; 85378; 87040; 87426; 93005; 94640; 96374; 96375; 99283; 99284; J1100; J3535; Q0144; Q9967

== ENCOUNTER 2024-11-29 17:15 | Emergency (ER) | payer SELFPAY ==
[2024-11-29 17:22] VITALS: BP 100/46; PULSE 66; RESP 17; TEMP 36.4; O2SAT 93; BMI 34.2
--- OUTSIDE RECORDS SUMMARY | 2024-11-29 17:27 | XMS_ITS | Encounter Summary ---
Author Organization [facility] Address [address] 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
--- OUTSIDE RECORDS SUMMARY | 2024-11-29 17:27 | XMS_ITS | Clinical Summary ---
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 Gender Identity Not on file Sexual Orientation Not on file Plan of Treatment Health Maintenance Due Date Last Done Comments COLONOSCOPY 1964 CT Colonography 1964 Colorectal Cancer Screening 1964 FIT DNA 1964 FIT 1964 Hepatitis C Screening 1965 Mammogram 1964 SIGMOIDOSCOPY 1964 Anxiety Screening 1972 HIV Screening 1979 Depression Screening 1982 TDAP/DTaP/TD Vaccines (1 - Tdap) 1983 Pap Smear 1985 Cervical Cancer Screening (30-65) 1994 HPV/Cotest 1994 Lipid Panel 2004 Pneumococcal Vaccine 50+ (1 of 1 - PCV) 2014 Zoster Vaccine (1 of 2) 2014 COVID-19 Vaccine (1 - 2023-2 5 season) 2024 Influenza Series (#1) 2024 Respiratory Syncytial Virus (RSV) Immunization - pts and pts aged 60 yrs+ (1 - 1-dose 75+ series) 2039 Hepatitis B Vaccine Aged Out No longe r eligible based on patient's age to complete this topic Meningococcal B Vaccine Aged Out No l onger eligible based on patient's age to complete this topic
--- NOTE | 2024-11-29 18:09 | ECG_ITS ---
[employer] Test Date: 2024-11-29 Pat Name: Kaila Greenberg Department: Room: Gender: Female Coat Baster: : 1965 Requested By: Geo Zendejas Order Number: [id number] Calderon MD: Winsome Hinojosa M.D. Measurements Intervals [place] Rate: 61 P: 46 VA: 178 QRS: -45 QRSD: 149 T: 173 QT: 456 QTc: 463 Interpretive Statements SINUS RHYTHM LEFT AXIS DEVIATION [QRS AXIS < -30] LEFT BUNDLE BRANCH BLOCK [120+ ms QRS DURATION, 80+ ms Q/S IN V1/V2, 85+ ms R IN I/aVL/V5/V6] Compared to ECG 11/12/2019 14:15:02 Left-axis deviation now present Electronically Signed On 11-30-2024 19:17:02 CDT by Winsome Hinojosa M.D. [email or web address]
--- NOTE | 2024-11-29 18:09 | XRR_ITS ---
PROCEDURE INFORMATION: Exam: XR Chest Exam date and time: 11/29/2024 6:10 PM Age: 59 years old Clinical indication: Pain; Chest pressure; Additional info: Chest pain TECHNIQUE: Imaging protocol: Radiologic exam of the chest. Views: 1 view. COMPARISON: CT angio chest PE protcl [id number] 11/12/2019 5:40 PM FINDINGS: Lungs: No infiltrates. No suspicious masses or nodules. Pleural spaces: No pneumothorax. Minimal blunting of the left costophrenic angle which can be seen with small left-sided pleural effusion. Heart/Mediastinum: Heart size within normal limits. No pulmonary vascular congestion. Bones/joints: No significant osseous lesion. No fractures. XR/XR chest 1V portable [id number] IMPRESSION: 1. Minimal blunting of the left costophrenic angle which can be seen with small left-sided pleural effusion. 2. Otherwise, no acute cardiopulmonary findings radiographically.
[2024-11-29 18:50] LABS: Hematocrit 33.0 % (36-47); Hemoglobin 10.90 g/dL (11.27-16.99); Mean Corpuscular HGB Conc 33.0 g/dL (30-55); Mean Corpuscular Hemoglobin 31.0 pg (27-33); Mean Corpuscular Volume 93.8 fl (85-98); Nucleated Red Blood Cells % 0 %; Platelet Count 195 10^3/cmm (157-399); Red Blood Count 3.52 10^6/uL (3.85-5.65); White Blood Count 9.24 10^3/uL (3.29-11.43)
[2024-11-29 19:04] VITALS: RESP 16
[2024-11-29] MEDS: morphine 4 mg/mL SDV 1 mL IVP (19:04)
[2024-11-29 19:09] LABS: Troponin(5th) Baseline 16 ng/L (0-10)
[2024-11-29 19:12] LABS: Alanine Aminotransferase 16 U/L (0-33); Albumin Level 4.0 g/dL (3.5-5.2); Alkaline Phosphatase 70 U/L (35-105); Anion Gap 14.3 (5-19); Aspartate Amino Transferase 15 U/L (0-32); Blood Urea Nitrogen 16 mg/dL (8-23); Calcium 8.8 mg/dL (8.5-10.5); Carbon Dioxide 26 mmol/L (22-29); Chloride 96 mmol/L (98-107); Creatinine Clr Calc Pharmacy 79.6728; Globulin 2.6 g/dL (1.3-4.6); Glucose 89 mg/dL (65-115); Osmolality Calculated 277 mOsm/kg (285-295); Potassium 3.3 mmol/L (3.5-5.1); Sodium 133 mmol/L (136-145); Total Protein 6.6 g/dL (6.6-8.7)
[2024-11-29 19:28] LABS: Glucose Urine UA Negative (Normal); Nitrate Urine Negative (Negative); Specific Gravity, Urine 1.030 (1.005-1.030)
[2024-11-29 19:35] LABS: PCP Screen Urine Negative (Negative)
[2024-11-29 19:45] LABS: Add Urine Microscopic? YES; UA Manual Slide Review YES; UA Slide Review UA Slide Review Perf
[2024-11-29 20:15] VITALS: BP 99/46; PULSE 61; RESP 18; O2SAT 95
--- NOTE | 2024-11-29 21:49 | W.ED.CHESTPA ---
HPI - Chest Pain General: Chief Complaint: Chest Pain Stated Complaint: chest pain Time Seen by Provider: 11/29/24 18:09 History of Present Illness: 59-year-old female with no known cardiac history presented with acute chest pain that began while changing her sister?s surgical dressing. Patient describes initial pressure/fullness across the entire anterior chest radiating across the back, becoming sharp and pleuritic (hurts to breathe in). Duration approximately 30 minutes and worsening; associated dizziness, near-syncope, and nausea. Took one nitroglycerin at home; en route received 324 mg aspirin and one nitroglycerin, after which she became hypotensive; EMS gave a 500 mL fluid bolus. On ED arrival, vital signs reported stable and pain improved. At interview, pain 1?210, localized to right chest. Denies prior stents or coronary artery bypass grafting (CABG). No recent cough or fever, though has ?not felt good? for the past couple of days. Additional concern: painful, hard, erythematous area on right antecubital region present for 2 days; patient denies known bite/sting; notes swelling increased last night and tenderness ?inside.? Related Data Home Medications ?Medication ?Instructions ?Recorded ?Confirmed albuterol sulfate 2.5 mg/3 mL See Rx Instructions .Route .COMPLEX 11/12/19 11/12/19 (0.083 %) solution for nebulization albuterol sulfate 90 mcg/actuation See Rx Instructions .Route .COMPLEX 11/12/19 11/12/19 aerosol inhaler (ProAir HFA) buspirone 30 mg tablet 30 mg PO BID 11/12/19 11/12/19 meloxicam 7.5 mg tablet 7.5 mg PO DAILY 11/12/19 11/12/19 sertraline 100 mg tablet 100 mg PO BID 11/12/19 11/12/19 tiotropium bromide 18 mcg capsule See Rx Instructions .Route .COMPLEX 11/12/19 11/12/19 with inhalation device (Spiriva with HandiHaler) trazodone 100 mg tablet 100 mg PO BID 11/12/19 11/12/19 varenicline tartrate 0.5 mg (11)-1 See Rx Instructions .Route .COMPLEX 11/12/19 11/12/19 mg (42) tablets in a dose pack (Fluorofinder Starting Month Box) Previous Rx's ?Medication ?Instructions ?Recorded albuterol sulfate 1.25 mg/3 mL 1.25 mg (3 mL) inhalation Q8H PRN 11/12/19 solution for nebulization shortness of breath or wheezing #75 mL benzonatate 100 mg capsule 100 mg PO BID PRN cough #20 caps 11/12/19 (Zulma Montoya) doxycycline hyclate 100 mg capsule 100 mg PO BID 10 days #20 caps 11/29/24 Allergies Allergy/AdvReac Type Severity Reaction Status Date / Time codeine Allergy Unknown Verified 11/29/24 17:26 diphenhydramine (From Allergy Unknown Verified 11/12/19 15:32 Benadryl) Penicillins Allergy Unknown Verified 11/12/19 15:32 COLD MEDICATIONS Allergy Unknown Uncoded 11/12/19 15:32 Physical Exam Const: COMMON NORMALS: no acute distress, patient oriented x3 and alert HENMT: COMMON NORMALS: normocephalic and atraumatic HEAD & SCALP: normocephalic and atraumatic Eye: COMMON NORMALS: Equal, round and reactive pupils present, EOMs intact bilaterally and no scleral icterus PUPIL: Yes Equal, round and reactive pupils present Chest: OTHER: Chest pain not reproducible with palpation or deep inspiration. Resp: COMMON NORMALS: normal respiratory effort and No retractions Cardio: COMMON NORMALS: regular rate, regular rhythm and No murmurs present (Cardio) RATE: regular rate RHYTHM: regular rhythm GI: COMMON NORMALS: Normal to inspection, nondistended, normoactive bowel sounds present, Soft to palpation and non-tender PALPATION: Yes Soft to palpation Neuro: COMMON NORMALS: patient oriented x3 SENSORIUM/ORIENTATION: Yes alert Skin: NARRATIVE SKIN EXAM: Approximately 5 cm circular erythematous, warm patch along right antecubital fossa; indurated by description; no appreciable abscess amenable to incision and drainage on exam. Course Vital Signs: Vital signs: Vital Signs Temperature 97.5 F L 11/29/24 17:22 Pulse Rate 61 11/29/24 20:15 Respiratory Rate 18 11/29/24 20:15 Blood Pressure 99/46 11/29/24 20:15 Pulse Oximetry 95 11/29/24 20:15 Oxygen Delivery Me thod Room Air 11/29/24 17:22 MDM - Chest Pain Medical Decision Making 59-year-old female with acute chest pressure radiating to back while caregiving, pleuritic component, associated dizziness, near-syncope, and nausea; improved after prehospital care. Current pain minimal and localized to right chest. Reports 2-day painful, enlarging, indurated erythematous area at right antecubital. Vital signs reported hypotension after nitroglycerin with EMS, responsive to fluids; stable on ED arrival. Physical exam notable for anterior chest pain with deep inspiration and a 5 cm warm, erythematous, indurated right antecubital patch without fluctuance. EKG: Time?1830?sinus bradycardia, rate of 56, left bundle branch block pattern with negative Sgarbossa criteria, QTc = 477. This EKG interpreted by me Acute coronary syndrome considered given 30-minute pressure and associated symptoms; bedside EKG not showing STEMI. Pleuritic nature and reproducibility with inspiration noted. Right antecubital lesion assessed as cellulitis on exam; provider also mentioned superficial thrombophlebitis; no drainable abscess appreciated. Plan included IV fluids and morphine for analgesia. EKG obtained. Further evaluation of the right antecubital lesion planned. Additional cardiac testing not specified in the transcript. Patient remained hemodynamically stable throughout ED course. EKG and blood work are reassuring. Chest x-ray is unremarkable. Troponin is normal. There may be a component of her symptoms attributable to her multiple drugs noted in urine drug screen including methamphetamine. She will be given a course of doxycycline for suspected cellulitis of the right antecubital fossa and discharged in stable condition. Lab Data 11/29/24 18:36 11/29/24 18:36 Radiology Impressions Chest X-Ray 11/29/24 18:09 IMPRESSION: 1. Minimal blunting of the left costophrenic angle which can be seen with small left-sided pleural effusion. 2. Otherwise, no acute cardiopulmonary findings radiographically. Laboratory Results WBC 9.24 10^3/uL (3.29-11.43) 11/29/24 18:36 RBC 3.52 10^6/uL (3.85-5.65) L 11/29/24 18:36 Hgb 10.90 g/dL (11.27-16.99) L 11/29/24 18:36 Hct 33.0 % (36-47) L 11/29/24 18:36 MCV 93.8 fl (85-98) 11/29/24 18:36 MCH 31.0 pg (27-33) 11/29/24 18:36 MCHC 33.0 g/dL (30-55) 11/29/24 18:36 RDW 13.8 % (12.1-15.1) 11/29/24 18:36 Plt Count 195 10^3/cmm (157-399) 11/29/24 18:36 MPV 12.0 fL (7.4-10.4) H 11/29/24 18:36 Neut % (Auto) 73.7 % 11/29/24 18:36 Lymph % (Auto) 15.5 % 11/29/24 18:36 [place] % (Auto) 9.2 % 11/29/24 18:36 Eos % (Auto) 0.9 % 11/29/24 18:36 Baso % (Auto) 0.3 % 11/29/24 18:36 Neut # (Auto) 6.81 10^3/uL (1.8-7.7) 11/29/24 18:36 Lymph # (Auto) 1.4 10^3/uL (0.8-4.8) 11/29/24 18:36 [place] # (Auto) 0.9 10^3/uL (0.2-0.9) 11/29/24 18:36 Eos # (Auto) 0.1 10^3/uL (0.0-0.8) 11/29/24 18:36 Baso # (Auto) 0.0 10^3/uL (0.0-0.1) 11/29/24 18:36 Nucleated RBC % (auto) 0 % 11/29/24 18:36 Nucleated RBCs # 0.0 /100WBC 11/29/24 18:36 Sodium 133 mmol/L (136-145) L 11/29/24 18:36 Potassium 3.3 mmol/L (3.5-5.1) L 11/29/24 18:36 Chloride 96 mmol/L (98-107) L 11/29/24 18:36 Carbon Dioxide 26 mmol/L (22-29) 11/29/24 18:36 Anion Gap 14.3 (5-19) 11/29/24 18:36 BUN 16 mg/dL (8-23) 11/29/24 18:36 Creatinine 0.7 mg/dL (0.5-0.9) 11/29/24 18:36 GFR Calculation 85.4 mL/min (90-130) L 11/29/24 18:36 Glucose 89 mg/dL (65-115) 11/29/24 18:36 Calculated Osmolality 277 mOsm/kg (285-295) L 11/29/24 18:36 Calcium 8.8 mg/dL (8.5-10.5) 11/29/24 18:36 Total Bilirubin 0.7 mg/dL (0.15-1.2) 11/29/24 18:36 AST 15 U/L (0-32) 11/29/24 18:36 ALT 16 U/L (0-33) 11/29/24 18:36 Alkaline Phosphatase 70 U/L (35-105) 11/29/24 18:36 Troponin T Baseline 16 ng/L (0-10) H 11/29/24 18:36 Total Protein 6.6 g/dL (6.6-8.7) 11/29/24 18:36 Albumin 4.0 g/dL (3.5-5.2) 11/29/24 18:36 Globulin 2.6 g/dL (1.3-4.6) 11/29/24 18:36 Urine Color Dark yellow (Yellow) A 11/29/24 18:53 Urine Appearance Cloudy (CLEAR) A 11/29/24 18:53 Urine pH 5.5 (5-7) 11/29/24 18:53 Ur Specific [place] 1.030 (1.005-1.030) 11/29/24 18:53 Urine Protein 2+ (Negative) A 11/29/24 18:53 Urine Glucose (UA) Negative (Normal) 11/29/24 18:53 Urine Ketones Trace (Negative) 11/29/24 18:53 Urine Blood Negative (Negative) 11/29/24 18:53 Urine Nitrate Negative (Negative) 11/29/24 18:53 Urine Bilirubin Negative (Negative) 11/29/24 18:53 Urine Urobilinogen 1.0 mg/dL (Negative) 11/29/24 18:53 Ur Leukocyte Esterase 2+ (Negative) A 11/29/24 18:53 Urine RBC 0-4 /hpf (0-2) H 11/29/24 18:53 Urine WBC 40-55 /hpf (0-5) H 11/29/24 18:53 Ur Squamous Epith Cells 6-10 /hpf (0-5) 11/29/24 18:53 Amorphous Sediment Not Reportable 11/29/24 18:53 Urine Bacteria Trace /hpf (NONE) 11/29/24 18:53 Hyaline Casts 0-4 /lpf H 11/29/24 18:53 Urine Mucus 1+ /hpf 11/29/24 18:53 Urine Opiates Screen Positive ng/mL (Negative) H 11/29/24 18:53 Ur Barbiturates Screen Negative ng/mL (Negative) 11/29/24 18:53 Ur Phencyclidine Scrn Negative ng/mL (Negative) 11/29/24 18:53 Ur Amphetamines Screen Positive ng/mL (Negative) H 11/29/24 18:53 U Benzodiazepines Scrn Positive ng/mL (Negative) H 11/29/24 18:53 Urine Cocaine Screen Negative ng/mL (Negative) 11/29/24 18:53 U Marijuana (THC) Screen Negative ng/mL (Negative) 11/29/24 18:53 All radiology interpretation(s) finalized by discharge Clincial Decision Support The following clinical decision support tools were used to aid in care of the patient HEART Score -> History: Slightly Suspicous, EKG: Normal, Age: 45-64 yrs, Risk Factors: 1 or 2 Risk Factors, Troponin: Baseline Trop <16 ng/L. Resulting HEART Score: 2. Discharge Plan Discharge Patient Disposition: Home Clinical Impression: Chest pain, Right arm cellulitis Condition: Stable Prescriptions: New doxycycline hyclate 100 mg capsule 100 mg PO BID 10 Days Qty: 20 0RF No Action albuterol sulfate 2.5 mg /3 mL (0.083 %) solution for nebulization See Rx Instructions .ROUTE .COMPLEX Rx Instructions: USE DIRECTED IN NEBULIZER. sertraline 100 mg tablet 100 mg PO BID meloxicam 7.5 mg tablet 7.5 mg PO DAILY trazodone 100 mg tablet 100 mg PO BID buspirone 30 mg tablet 30 mg PO BID ProAir HFA 90 mcg/actuation HFA aerosol inhaler See Rx Instructions .ROUTE .COMPLEX Rx Instructions: inhaled 2 PUFFS 2-3 TIMES PER DAY Spiriva with HandiHaler 18 mcg capsule, w/inhalation device See Rx Instructions .ROUTE .COMPLEX Rx Instructions: 1 inhaled 1 PUFF DAILY Chantix Starting Month Box 0.5 mg (11)- 1 mg (42) tablets,dose pack See Rx Instructions .ROUTE .COMPLEX Rx Instructions: ea USE DIRECTED. PT STATES SHE HAS NOT YET STARTED THIS MEDICATION Tessalon Perles 100 mg capsule 100 mg PO BID PRN (Reason: cough) Qty: 20 0RF albuterol sulfate 1.25 mg/3 mL solution for nebulization 1.25 mg INHALATION Q8H PRN (Reason: shortness of breath or wheezing) Qty: 75 0RF Discharge Orders: Discharge ED (Routine); Ordered 11/29/24 Ordered By: Geo Fung Discharge Diet: Usual diet Discharge Activity: Increase activity as tolerated Patient Instructions: Chest Pain - Noncardiac, Cellulitis (ED), Patient Portal & Satish Instructions Print Language: Paraguayan Coding Level of Care Code ED Polymerization Oven Operator for Leanng Fwsamuel Heart Score HEART Score Components History: Slightly Suspicous EKG: Normal Age: 45-64 yrs Risk Factors: 1 or 2 Risk Factors Troponin: Baseline Trop <16 ng/L HEART Score RESULT HEART Score: 2
== END 2024-11-29 20:19 | disposition home or self-care (01) ==
PROVIDERS: Emergency Provider Student in an Organized Health Care Education/Training Program
DX: R07.9 Chest pain, unspecified (principal); L03.113 Cellulitis of right upper limb
CPT/HCPCS: 36415; 71045; 80053; 80306; 81001; 84484; 85025; 87086; 87186; 93005; 96374; 99285; J2270